=== PATIENT | male | born 1995 | race Two or more races ===

== ENCOUNTER 2024-09-19 11:45 | Emergency (ER) | payer MEDICARE, OTHER ==
[~2024-09-19] VITALS: Ht 170.2 cm; Wt 99.8 kg
[2024-09-19 12:09] LABS: PLATELET COUNT (AUTO) 201 K/uL (150-450); RED BLOOD CELL COUNT(AUTO) 6.51 MIL/uL (4.5-6.0); RED CELL DISTRIBUTION WIDTH 14.7 % (11.5-15.0); WHITE BLOOD COUNT (AUTO) 10.5 K/uL (4.3-11.0)
[2024-09-19 12:16] LABS: CALCIUM, SERUM 9.3 mg/dL (8.5-10.1); CREATININE 1.3 mg/dL (0.6-1.3); SODIUM SERUM 136 mmol/L (136-145); UREA NITROGEN, BLOOD 19 mg/dL (7-18)
[2024-09-19] MEDS: IV NS 0.9% 1,000 ML BAG IV ONE (12:30)
[2024-09-19 12:31] LABS: ASPARTATE AMINOTRANSFERASE 23 U/L (15-37); NT-PRO BNP 12 pg/mL (0-125); TOTAL PROTEIN, SERUM 7.7 g/dL (6.4-8.2)
[2024-09-19 13:47] VITALS: BP 118/70; TEMP 98.1; O2SAT 99
== END 2024-09-19 13:48 | disposition home or self-care (01) ==
LOC: ER 11:49
DX: R56.9 Unspecified convulsions (principal); F84.0 Autistic disorder; R06.02 Shortness of breath
CPT/HCPCS: 99285; 96360; 70450; 71045; 93005; 85025; 80048; 80076; 36415; 84484; 83880; 82962; J7030